=== PATIENT | female | born 1950 | race Caucasian/White ===

== ENCOUNTER 2022-03-07 11:26 | Day surgery (SDC) | payer MEDICARE ==
[~2022-03-07] VITALS: Ht 180.3 cm; Wt 136.2 kg
[2022-03-07] MEDS ORDERED: OMEP20ER (12:06)
[2022-03-07] MEDS ORDERED: Prozac40 MG (12:06)
[2022-03-07] MEDS ORDERED: NAPR220 (12:07)
== END 2022-03-07 15:35 | disposition home or self-care (01) ==
LOC: ORSCSDS 11:26
PROVIDERS: Internal Medicine Gastroenterology
PROC: 0DBN8ZX Excision of Sigmoid Colon, Via Natural or Artificial Opening Endoscopic, Diagnostic (ICD-10-PCS; principal; 2022-03-07 12:45)
DX: Z12.11 Encounter for screening for malignant neoplasm of colon (principal); Z86.010 Personal history of colon polyps; Z83.71 Family history of colonic polyps; D12.5 Benign neoplasm of sigmoid colon; K57.30 Diverticulosis of large intestine without perforation or abscess without bleeding; K64.8 Other hemorrhoids; G47.33 Obstructive sleep apnea (adult) (pediatric); J45.909 Unspecified asthma, uncomplicated; E66.01 Morbid (severe) obesity due to excess calories; Z68.41 Body mass index [BMI] 40.0-44.9, adult; Z79.899 Other long term (current) drug therapy
CPT/HCPCS: 88305; J2704; J7120